=== PATIENT | male | born 1960 | race Caucasian/White ===

== ENCOUNTER 2017-08-31 06:05 | Inpatient (IN) ==
--- NOTE | 2017-08-30 14:39 | Discharge Summary ---
<Ramandeep Talyor E - Last Filed: 08/30/17 15:23> Date of Encounter: 08/30/17 - Discharge Diagnosis (1) Osteoarthritis of both knees Priority: Primary Status: Chronic Qualifiers: Osteoarthritis type: unspecified Qualified Code(s): M17.0 - Bilateral primary osteoarthritis of knee (2) Chronic pain Priority: Secondary Status: Chronic Qualifiers: Chronic pain type: other chronic pain Qualified Code(s): G89.29 - Other chronic pain (3) Status post cervical spinal fusion Priority: Secondary Status: Chronic (4) HTN (hypertension) Priority: Secondary Status: Chronic Qualifiers: Hypertension type: unspecified Qualified Code(s): I10 - Essential (primary ) hypertension (5) JOSE JUAN on CPAP Priority: Secondary Status: Chronic (6) Male erectile disorder Priority: Secondary Status: Chronic (7) GERD (gastroesophageal reflux disease) Priority: Secondary Status: Chronic Qualifiers: Esophagitis presence: esophagitis presence not specified Qualified Code(s) : K21.9 - Gastro-esophageal reflux disease without esophagitis (8) HLD (hyperlipidemia) Priority: Secondary Status: Chronic Qualifiers: Hyperlipidemia type: unspecified Qualified Code(s): E78.5 - Hyperlipidemia , unspecified - Discharge Medications Home Medications: Bupropion HCl [Wellbutrin Xl] 300 mg PO DAILY 12/17/16 [History] Eszopiclone [Lunesta] 3 mg PO HS PRN 12/17/16 [History] FLUoxetine HCl [Prozac] 40 mg PO MOWEFR 12/17/16 [History] Famotidine [Heartburn Prevention] 20 mg PO BID 12/17/16 [History] Lisinopril [Zestril] 20 mg PO DAILY 12/17/16 [History] Loratadine [Claritin] 10 mg PO DAILY 12/17/16 [History] Lovastatin 40 mg PO MOWEFR 12/17/16 [History] Metoprolol XL (24 HR) Succ [Toprol Xl] 25 mg PO DAILY 12/17/16 [History] Pregabalin [Lyrica] 75 mg PO BID 12/17/16 [History] amLODIPine [Norvasc] 5 mg PO DAILY 12/17/16 [History] Buspirone HCl [Buspar] 10 mg PO BID 03/24/17 [History] Testosterone Cypionate [Depo-Testosterone] 200 mg IM QMONTH 03/24/17 [History] Cyclobenzaprine [Flexeril] 10 mg PO TID 07/02/17 [History] Diclofenac Sodium [Voltaren] 1 appl TP QID 07/02/17 [History] Docusate [Colace] 100 mg PO DAILY 07/02/17 [History] Oxycodone HCl [Oxaydo] 5 mg PO Q8H PRN 07/02/17 [History] Aspirin Enteric Coated [Aspirin EC] 325 mg PO DAILY 21 Days #21 tablet. [Rx] Aspirin Enteric Coated [Aspirin EC] 325 mg PO DAILY 21 Days #21 tablet. [Rx] OxyCODONE Immed Rel [Roxicodone 5 MG] 5 mg PO BID PRN 7 Days #14 tablet [Rx] hydrOXYzine pamoate [HydrOXYzine Pamoate] 50 mg PO Q6H PRN 08/31/17 [History] Allergies/Adverse Reactions: 3 Allergy/AdvReac Type Severity Reaction Status Date / Time No Known Allergies Allergy Verified 08/31/17 07:10 Primary care physician: Chaitanya Burrell DO - Patient Status Disposition: Transfer Inpatient Rehab Fac Condition: Good - Discharge Instructions Follow Up With: Ramandeep Taylor PAC [Physician Planning Analyst] - 09/10/17 8:45 am (& also, September 17, 2017 at 3:15 PM) Yung Kothari MD [Partnered Physician] - 09/09/17 5:25 pm (& also, September 30, 2017 at 4:45 PM) Chaitanya Burrell DO [Primary Care Provider] - 11/03/17 2:30 pm - Hospital Course Hospital course: Mr. Gomez is a 57 year old male - Time Spent with Patient Total time spent providing and/or coordinating discharge services: <Yung Kothari - Last Filed: 09/03/17 07:51> Date of Encounter: 09/03/17 Time of Encounter: 07:51 - Discharge Diagnosis (1) Status post bilateral knee replacements Priority: Primary Status: Acute (2) Obesity (BMI 30.0-34.9) Priority: Secondary Status: Chronic (3) Osteoarthritis of both knees Priority: Primary Status: Chronic Qualifiers: Osteoarthritis type: unspecified Qualified Code(s): M17.0 - Bilateral primary osteoarthritis of knee (4) Chronic pain Priority: Secondary Status: Chronic Qualifiers: Chronic pain type: other chronic pain Qualified Code(s): G89.29 - Other chronic pain (5) Status post cervical spinal fusion Priority: Secondary Status: Chronic (6) HTN (hypertension) Priority: Secondary Status: Chronic Qualifiers: Hypertension type: unspecified Qualified Code(s): I10 - Essential (primary ) hypertension (7) JOSE JUAN on CPAP Priority: Secondary Status: Chronic (8) Male erectile disorder Priority: Secondary Status: Chronic (9) GERD (gastroesophageal reflux disease) Priority: Secondary Status: Chronic Qualifiers: Esophagitis presence: esophagitis presence not specified Qualified Code(s) : K21.9 - Gastro-esophageal reflux disease without esophagitis (10) HLD (hyperlipidemia) Priority: Secondary Status: Chronic Qualifiers: Hyperlipidemia type: unspecified Qualified Code(s): E78.5 - Hyperlipidemia , unspecified Primary care physician: Chaitanya Burrell DO - Patient Status Functional capacity at discharge: uses cane/walker Overall status at discharge: patient is progressing back to baseline - Hospital Course Hospital course: Mr. Gomez is a 57 year old male Status post bilateral total knee replacements The patient had an uneventful postoperative course. They received antibiotics and physical therapy and were discharged in stable condition. There will follow -up in the office in 2 weeks. - Time Spent with Patient Total time spent providing and/or coordinating discharge services:
[2017-08-31] MEDS ORDERED: CeFAZolin Syr 2,000MG/20 ML 2,000 MG/20 ML SYRINGE IVPB ONE (06:18)
[2017-08-31] MEDS ORDERED: Plasma-Lyte A (PH 7.4) 1,000 ML IVC SCH (06:30)
--- NOTE | 2017-08-31 06:49 | History & Physical Report ---
Date of Encounter: 08/31/17 Time of Encounter: 06:49 24 Hour HP Update - Instructions Instructions: If the History and Physical is less than 30 days old and was completed prior to A.M. admission and or procedure and has NOT been updated on calendar day of procedure please complete this update prior to performing procedure. - Update Patient reports changes in Medical Condition: No Changes in examination, assessment, or condition: No Changes in Medication: No Preop tests/diagnostics Reviewed: Yes Surgery Remains Indicated: Yes Consent for Planned Operative Procedure(s) Verified: Yes - Pre-Operative Checklist Preoperative Checklist Indicated: No Prophylactic Antibiotic Ordered: Yes Is VTE Prophylaxis Indicated?: Yes
[2017-08-31] MEDS ORDERED: Famotidine 20 MG/2 ML VIAL IVP ONE (06:57)
[2017-08-31] MEDS ORDERED: Pregabalin 75 MG CAPSULE PO ONE (06:58)
--- NOTE | 2017-08-31 07:01 | Anesthesia Evaluation PreOp ---
Date of Encounter: 08/31/17 Time of Encounter: 07:00 - Past History Planned Operation: Bilateral TKA Cardiac History: HTN, Hyperlipidemia Pulmonary History: JOSE JUAN Dx FIELD SERVICE CONSULTANT History: Denies Any Significant HX Other Medical History: Denies Any Significant HX Anesthesia History: No Prior Anesthetic Complications Alcohol Use: none Drug use: none Medications and Allergies Bupropion HCl [Wellbutrin Xl] 300 mg PO DAILY 12/17/16 [History] Eszopiclone [Lunesta] 3 mg PO HS PRN 12/17/16 [History] FLUoxetine HCl [Prozac] 40 mg PO MOWEFR 12/17/16 [History] Famotidine [Heartburn Prevention] 20 mg PO BID 12/17/16 [History] Lisinopril [Zestril] 20 mg PO DAILY 12/17/16 [History] Loratadine [Claritin] 10 mg PO DAILY 12/17/16 [History] Lovastatin 40 mg PO MOWEFR 12/17/16 [History] Metoprolol XL (24 HR) Succ [Toprol Xl] 25 mg PO DAILY 12/17/16 [History] Pregabalin [Lyrica] 75 mg PO BID 12/17/16 [History] amLODIPine [Norvasc] 5 mg PO DAILY 12/17/16 [History] Buspirone HCl [Buspar] 10 mg PO BID 03/24/17 [History] Testosterone Cypionate [Depo-Testosterone] 200 mg IM QMONTH 03/24/17 [History] Clindamycin [Cleocin] 150 mg PO Q6HR #7 capsule 07/02/17 [Rx] Cyclobenzaprine [Flexeril] 10 mg PO TID 07/02/17 [History] Diclofenac Sodium [Voltaren] 1 appl TP QID 07/02/17 [History] Docusate [Colace] 100 mg PO DAILY 07/02/17 [History] Oxycodone HCl [Oxaydo] 5 mg PO Q6HR 07/02/17 [History] Aspirin Enteric Coated [Aspirin EC] 325 mg PO DAILY 21 Days #21 tablet. [Rx] Aspirin Enteric Coated [Aspirin EC] 325 mg PO DAILY 21 Days #21 tablet. [Rx] OxyCODONE Immed Rel [Roxicodone 5 MG] 5 mg PO BID PRN 7 Days #14 tablet [Rx] 3 Allergy/AdvReac Type Severity Reaction Status Date / Time No Known Allergies Allergy Verified 03/24/17 08:03 - Meds/Allergy Pre-op Review Medications Reviewed: Yes Allergies Reviewed: Yes Beta Blockers on Current Med List: Yes (Took Metoprolol today 0530) Anesthesia Results - Labs Laboratory Tests 08/24/17 08/24/17 08/24/17 15:23 15:23 15:23 Hgb 16.1 Hct 50.7 H Plt Count 231 PT 11.2 INR 1.0 APTT 26.6 Sodium 137 Potassium 4.6 BUN 17 Creatinine 1.47 H - Imaging EKG: report reviewed (SR) Anesthesia Exam O2 Sat Height 1.73 m Height 1.73 m Height 1.73 m Weight 99.337 kg Weight 99.337 kg Weight 99.337 kg O2 Sat by Pulse Oximetry 96 O2 Sat by Pulse Oximetry 96 Vital Signs Temp Pulse Resp BP Pulse Ox 97.9 F 65 18 124/79 96 08/31/17 06:23 08/31/17 06:23 08/31/17 06:23 08/31/17 06:23 08/31/17 06:23 Height: 5'8 Weight: 219 lbs NPO (# of Hours): MN Pain Scale: 0 - HEENT Pupil (Motor): Pupils equal, EOMI Mallampati: III Teeth: Normal Oral Opening: Less than or equal to 3 - FIELD SERVICE CONSULTANT LOC: Oriented FIELD SERVICE CONSULTANT Motor: Normal RUE, Normal LUE, Normal RLE, Normal LLE, Normal Face FIELD SERVICE CONSULTANT Sensory: Normal: RUE, LUE, RLE, LLE, Face - Cardiac Rhythm: Regular Murmur: None JVD: No Carotid Bruit: No - Pulmonary Breath Sounds: bilateral Clear Respiratory Effort: Symmetrical Anesthesia Assess/Plan ASA Score: 2 Modified [place] Scale for Level of Consciousness: Cooperative, oriented, and tranquil Anesthetic Plan: General, Regional Monitoring Plan: Standard Monitors Recovery Plan: PACU (Discussed GA and RA, agrees to proceed)
[2017-08-31] MEDS ORDERED: Lidocaine -MPF 1% 2 ML VIAL ONE (07:15)
[2017-08-31] MEDS ORDERED: Ethanol\\Acetic Acid\\Na Ace\\Ben 1,000 ML IRRIG.SOLN IR ONE ×2 (07:20→07:21)
[2017-08-31] MEDS ORDERED: Lidocaine -MPF 2% 2 ML VIAL ONE (07:52)
[2017-08-31] MEDS ORDERED: *HR* FentaNYL (PF) 100 MCG/2 ML VIAL ONE (07:52)
[2017-08-31] MEDS ORDERED: *HR* Propofol 200 MG/20 ML VIAL IVP ONE ×2 (07:52→09:00)
[2017-08-31] MEDS ORDERED: Ketamine *HR* 500 MG/10 ML MDV ONE (07:53)
[2017-08-31] MEDS ORDERED: Ondansetron 4 MG/2 ML VIAL IVP PRN ×2 (07:56→11:14)
[2017-08-31] MEDS ORDERED: *HR* OxyCODONE/APAP 5/325 TABLET PO PRN (07:56)
[2017-08-31] MEDS ORDERED: *HR* Succinylcholine 200 MG/10 ML VIAL IVP ONE (08:00)
[2017-08-31] MEDS ORDERED: Ropivacaine/PF 0.2% 500 MG/250 ML INFUS..BTL EP SCH (08:00)
[2017-08-31] MEDS ORDERED: Acetaminophen IV 1,000 MG/100 ML INFUS..BTL ONE (08:06)
[2017-08-31] MEDS ORDERED: *HR* Magnesium Sulfate 1 GM/2 ML VIAL ONE (08:07)
[2017-08-31] MEDS ORDERED: Dexamethasone 4 MG/ML VIAL ONE (08:09)
[2017-08-31] MEDS ORDERED: Ondansetron 4 MG/2 ML VIAL ONE (08:09)
[2017-08-31] MEDS ORDERED: *HR* PHENYLEPHRINE 1,000 MCG/10 ML SYRINGE IVP ONE ×2 (08:19→08:43)
--- NOTE | 2017-08-31 08:30 | Anesthesia Procedures ---
Date of Encounter: 08/31/17 Time of Encounter: 07:00 Procedures: Anesthesia - Epidural/Spinal Patient ID/Chart reviewed: Yes Patient examined: Yes Consent Obtained: Yes Supplemental Oxygen: Nasal Cannula Supplemental Oxygen Rate (L/min): 2 Sedation: Versed (mg): 4 Site Prep: Aseptic Technique, Sterile prep and drape, Povidone-Iodine 1% Patient position: upright Local Anesthetic: Lidocaine 1% Amount of Local Anesthetic used: 5 Touhy Needle Gauge: 19 Touhy Needle Depth (cm): 4 Catheter Depth at Skin (cm): 6 Test Dose (1.5% Lido + Epi): Volume given (mls): 5 Test Dose Result: Negative Loading Dose: 0.25% Marcaine (mls): 6 Loading Dose Administered: Thru Catheter Infusion Med: Other (Ropivacaine) Infusion Rate (mls/hr): [address]: Tegaderm, Tape Interspace Used: L3-L4 Loss of Resistance (TERRELL): Yes Blood: No CSF: No Paresthesia: No Vitals + FHT's: Vital Signs/O2 Sat/Glucose, Most Current Temp Pulse Resp BP Pulse Ox 08/31/17 07:30 68 18 133/94 100 08/31/17 06:30 97.9 F 65 18 124/79 96 08/31/17 06:23 97.9 F 65 18 124/79 96
--- NOTE | 2017-08-31 08:30 | Anesthesia Procedures ---
Date of Encounter: 08/31/17
[2017-08-31] MEDS ORDERED: EPHEDrine 50 MG/ML VIAL ONE (08:39)
[2017-08-31] MEDS ORDERED: *HR* Vasopressin 20 UNIT/ML VIAL ONE (08:44)
[2017-08-31] MEDS ORDERED: *HR* Midazolam HCl 2 MG/2 ML VIAL ONE (09:16)
--- NOTE | 2017-08-31 09:50 | Orthopedic Operative Note ---
Date of procedure: 08/31/17 Pre-op diagnosis: Bilateral knee arthritis Post-op diagnosis: same Procedure: Procedure: Bilateral robotic-assisted Total knee replacement Estimated blood loss: 400 cc Hardware: Metal and polyethylene replacement. [place] Femur: 5 Tibia: 5 PS insert: 13 Patella: 39 Exam Under anesthesia: Left knee 9 degrees flexion contracture 6 degrees varus right knee 6 degree flexion contracture 7 degree varus as calculated by the robot full flexion and no instability Procedural Notes: Patient noted to have grade 4 arthritic changes medial compartment patellofemoral joint bilaterally Operative procedure: The patient was brought to the operating room and placed on the operating room table. After general anesthesia was administered the operative knee was examined. Findings were noted in the exam under anesthesia. Surgery that is dictated this for both knees any differences will be highlighted The operative extremity was prepped and draped in sterile surgical fashion. The patient received IV antibiotics prior to skin incision. A standard midline incision was made centered over the patella. The incision was made through the skin and subcutaneous tissue. A medial parapatellar tendon approach was performed. Care was taken to preserve tissue along the medial aspect of the patella. And to protect the patella tendon. The deep MCL was released off the medial tibia. The infra patella fat pad was excised. The patella was everted and cut was made at the level of the insertion of the quadriceps and patella tendon. The patella was sized to a 39 the guide was seated and the lug holes are drilled. Knee was brought into flexion. Patient noted to have patient noted to have grade 4 through the changes medial compartment and patellofemoral joint in both knees. Steinmann pins were placed in the tibia and the femur for the tibial and femoral arrays respectively. Checkpoints were also placed in the tibia and the femur for calculation purposes. The knee including the femur and the tibial registered. Osteophytes, ACL and PCL were excised at this point. Extension and flexion were assessed with a valgus stress components were adjusted on the computer to balance the knee. Femoral cuts were made first with robotic assistance, these included the anterior cut posterior cuts chamfer cuts. Tibial cut was then performed with robotic assistance as well. Bone fragments were removed, as well as the medial and lateral meniscus. The size 5 femoral guide was seated box cut was made lug holes are drilled. The size 5 tibial tray was seated and prepared with the fin cutter. Trial reduction with the 13 PS Lela revealed extension of 0, 3 degrees varus left knee and 6 degrees varus and full flexion. No varus valgus instability. Trial reduction revealed excellent patella tracking. All trial components were removed all bony surfaces were irrigated. The Tibia was seated followed by the femur, The Lela size 13 was seated and secured patella. Patient had similar findings for motion and stability. I closed the left knee, The knee was closed by the PA for the right knee. The knee was then irrigated out with 2 L of pulse irrigation. The extensor mechanism was closed with #2 FiberWire suture and #2 PDS suture. The subcutaneous tissue was then irrigated and closed deep with #1 PDS suture superficially with 0 PDS suture and skin was closed with zip tie The patient was then placed in a sterile dressing and a postoperative brace extubated and transferred to recovery room in stable condition. Anesthesia: GETA, epidural Surgeon: Yung Kothari Was there an assistant to the director present: Yes Electric Motor Control Assembler: Ramandeep Taylor Estimated blood loss (cc): 400 Condition: stable Disposition: PACU
[2017-08-31 10:54] LABS: Hemoglobin 13.5 g/dL (12.9-16.9)
[2017-08-31] MEDS ORDERED: Temazepam 15 MG CAPSULE PO PRN (11:14)
[2017-08-31] MEDS ORDERED: hydrOXYzine pamoate 25 MG CAPSULE PO PRN (11:14)
[2017-08-31] MEDS ORDERED: Sennosides 8.6 MG TABLET PO PRN (11:14)
[2017-08-31] MEDS ORDERED: NON-FORMULARY MEDICATION 1 EACH EACH (Testosterone Cypionate [Depo-Testosterone] 200 MG) IM SCH (11:14)
[2017-08-31] MEDS ORDERED: Naloxone 0.4 MG/ML INJ IVP PRN (11:14)
[2017-08-31] MEDS ORDERED: MOM Conc 10 ML UD.LIQ PO PRN (11:14)
[2017-08-31] MEDS: *HR* OxyCODONE/APAP 5/325 TABLET PO PRN ×2 (12:50→21:36)
--- NOTE | 2017-08-31 13:07 | Anesthesia Evaluation Post Op ---
Date of Encounter: 08/31/17 Time of Encounter: 11:00 - Vital Signs Vital Signs: Vital Signs/O2 Sat/Glucose, Most Current Temp Pulse Resp BP Pulse Ox 08/31/17 12:52 97.8 F 89 14 143/81 98 08/31/17 12:03 97.7 F 79 14 125/73 97 08/31/17 11:30 97 08/31/17 11:21 97.9 F 81 14 127/72 100 08/31/17 11:11 97.9 F 76 14 131/71 100 08/31/17 11:01 97.9 F 75 15 135/68 100 08/31/17 10:51 75 14 127/52 100 08/31/17 10:41 71 14 127/70 100 08/31/17 10:31 97.8 F 73 14 116/65 87 08/31/17 10:30 16 92 - Lungs Lungs: Clear Ascult./Percussion - Airway Airway: Non-obstructed - Cardiovascular Regular Rate - Mental Status Mental Status: Alert & Oriented, Answers Appropriately - Pain Pain Scale: 0 - Nausea Vomiting Nausea Vomiting: Not Present - Hydration Hydration: Ice chips - Discharge PostOp Status: Transfer Patient to floor
[2017-08-31] MEDS: Lisinopril 20 MG TABLET PO SCH (16:20)
[2017-08-31] MEDS: Metoprolol XL (24 HR) Succ 25 MG TAB.ER.24H PO SCH (16:21)
[2017-08-31] MEDS: BuPROPion XL (24 HR) 150 MG TABLET PO SCH (16:21)
[2017-08-31] MEDS: FLUoxetine 20 MG CAPSULE PO SCH (16:21)
[2017-08-31] MEDS: Loratadine 10 MG TABLET PO SCH (16:21)
[2017-08-31] MEDS: amLODIPine 5 MG TABLET PO SCH (16:21)
[2017-08-31] MEDS: CeFAZolin Premix DUPLEX 2,000 MG/50 ML BAG IVPB SCH ×2 (16:22→23:40)
[2017-08-31] MEDS ORDERED: *HR* Enoxaparin 30 MG/0.3 ML SYRINGE SQ SCH (18:00)
[2017-08-31] MEDS: Ringers Solution, Lactated 1,000 ML IVC SCH (21:09)
[2017-08-31] MEDS: Pregabalin 75 MG CAPSULE PO SCH (21:26)
[2017-08-31] MEDS: Famotidine 20 MG TABLET PO SCH (21:27)
[2017-09-01] MEDS: Ringers Solution, Lactated 1,000 ML IVC SCH (00:25)
[2017-09-01] MEDS: *HR* OxyCODONE/APAP 5/325 TABLET PO PRN (04:58)
[2017-09-01 05:11] LABS: Hematocrit 40.8 % (37.5-50.1); Hemoglobin 13.7 g/dL (12.9-16.9)
[2017-09-01 05:22] LABS: BUN/Creatinine Ratio 13 (6-26); Blood Urea Nitrogen 15 mg/dL (6-20); Calcium 8.8 mg/dL (8.6-10.3); Carbon Dioxide 28 mEq/L (23-29); Chloride 104 mEq/L (98-107); Glucose 132 mg/dL (70-105); Osmolality,Calculated 289 (280-300); Sodium 138 mEq/L (136-145); eGFR For African Americans > 60 (> 60); eGFR For Non-African Americans > 60 (> 60)
[2017-09-01] MEDS ORDERED: *HR* Morphine Sulfate/PF 10 MG/10 ML AMPUL ONE (06:32)
[2017-09-01] MEDS: *HR* OxyCODONE Immed Rel 5 MG TABLET PO PRN ×4 (06:51→21:23)
--- NOTE | 2017-09-01 06:51 | Orthopedics Progress Note ---
Date of Encounter: 09/01/17 Time of Encounter: 06:51 - Assessment and Plan (1) Status post bilateral knee replacements Current Visit: Yes Status: Acute (2) Obesity (BMI 30.0-34.9) Current Visit: Yes Status: Chronic (3) Osteoarthritis of both knees Current Visit: No Status: Chronic Qualifiers: Osteoarthritis type: unspecified Qualified Code(s): M17.0 - Bilateral primary osteoarthritis of knee (4) Chronic pain Current Visit: No Status: Chronic Qualifiers: Chronic pain type: other chronic pain Qualified Code(s): G89.29 - Other chronic pain (5) Status post cervical spinal fusion Current Visit: No Status: Chronic (6) HTN (hypertension) Current Visit: No Status: Chronic Qualifiers: Hypertension type: unspecified Qualified Code(s): I10 - Essential (primary ) hypertension (7) JOSE JUAN on CPAP Current Visit: No Status: Chronic (8) Male erectile disorder Current Visit: No Status: Chronic (9) GERD (gastroesophageal reflux disease) Current Visit: No Status: Chronic Qualifiers: Esophagitis presence: esophagitis presence not specified Qualified Code(s) : K21.9 - Gastro-esophageal reflux disease without esophagitis (10) HLD (hyperlipidemia) Current Visit: No Status: Chronic Qualifiers: Hyperlipidemia type: unspecified Qualified Code(s): E78.5 - Hyperlipidemia , unspecified Subjective Interval history: Patient was seen this morning doing well without complaints. Afebrile vital signs stable. Operative extremity: Neurovascularly intact Dressing clean dry and intact Calves nontender Assessment and plan: Continue with postoperative care Hematocrit 40 Objective Vital signs: Vital Signs Temp Pulse Resp BP Pulse Ox 09/01/17 03:50 98.1 F 89 18 140/80 100 08/31/17 23:39 98.3 F 100 18 153/80 100 08/31/17 19:41 98.3 F 82 18 163/80 100 08/31/17 17:40 97.9 F 88 17 137/78 99 08/31/17 15:45 97.8 F 77 15 131/80 100 08/31/17 14:37 97.8 F 81 15 131/76 99 08/31/17 13:40 97.8 F 88 15 130/77 99 08/31/17 12:52 97.8 F 89 14 143/81 98 08/31/17 12:03 97.7 F 79 14 125/73 97 08/31/17 11:30 97 08/31/17 11:29 97.7 F 82 15 124/60 97 08/31/17 11:21 97.9 F 81 14 127/72 100 08/31/17 11:11 97.9 F 76 14 131/71 100 08/31/17 11:01 97.9 F 75 15 135/68 100 08/31/17 10:51 75 14 127/52 100 08/31/17 10:41 71 14 127/70 100 08/31/17 10:31 97.8 F 73 14 116/65 87 08/31/17 10:30 16 92 08/31/17 07:30 68 18 133/94 100 Intake and Output 08/31/17 08/31/17 09/01/17 15:59 23:59 07:59 Intake Total 20 / 20 3010 / 3010 850 / 850 Output Total 400 / 400 7250 / 7250 1999 Balance -380 / -380 -4240 / -4240 -1150 / -1150 Intake: IV Fluids 20 / 20 50 / 50 50 / 50 Ancef Premix DUPLEX 2,000 mg In 50 / 50 50 / 50 50 ml @ 100 mls/hr IVPB Q8HR REBEL Rx#:[id number] Ancef Syringe 2,000 MG/20 ML 2, 20 / 20 000 mg In 20 ml @ 200 mls/hr IVPB PREOP ONE Rx#:[id number] Oral 2960 / 2960 800 / 800 Output: Estimated Blood Loss 400 / 400 Catheter 7250 / 7250 1999 Urethral ([place]) 2150 / 2150 200 / 200 Other: Meal Dinner Percent of Meal Consumed 100% - Labs CBC & BMP: 09/01/17 04:11 09/01/17 04:11 Labs: Abnormal lab results Glucose 132 mg/dL (70-105) H 09/01/17 04:11 - VTE Documentation of Mechanical Device: Venous foot pump, device Consult Discharge Plan - Plan Referrals: Chaitanya Burrell DO [Primary Care Provider] -
[2017-09-01] MEDS: Lisinopril 20 MG TABLET PO SCH (07:54)
[2017-09-01] MEDS: Pregabalin 75 MG CAPSULE PO SCH ×2 (07:55→21:02)
[2017-09-01] MEDS: BuPROPion XL (24 HR) 150 MG TABLET PO SCH (07:55)
[2017-09-01] MEDS: Loratadine 10 MG TABLET PO SCH (07:55)
[2017-09-01] MEDS: Metoprolol XL (24 HR) Succ 25 MG TAB.ER.24H PO SCH (07:55)
[2017-09-01] MEDS: amLODIPine 5 MG TABLET PO SCH (07:56)
[2017-09-01] MEDS: Famotidine 20 MG TABLET PO SCH ×2 (07:56→21:02)
[2017-09-01] MEDS ORDERED: *HR* OxyCODONE Immed Rel 5 MG TABLET PO PRN (08:04)
[2017-09-01] MEDS: Acetaminophen IV 1,000 MG/100 ML INFUS..BTL IVPB PRN (11:14)
[2017-09-01] MEDS: *HR* Enoxaparin 30 MG/0.3 ML SYRINGE SQ SCH (18:49)
[2017-09-02] MEDS: *HR* OxyCODONE Immed Rel 5 MG TABLET PO PRN ×4 (04:25→18:17)
[2017-09-02 05:47] LABS: Hemoglobin 12.8 g/dL (12.9-16.9)
[2017-09-02 06:03] LABS: BUN/Creatinine Ratio 12 (6-26); Blood Urea Nitrogen 13 mg/dL (6-20); Calcium 8.5 mg/dL (8.6-10.3); Carbon Dioxide 31 mEq/L (23-29); Chloride 95 mEq/L (98-107); Glucose 110 mg/dL (70-105); Osmolality,Calculated 271 (280-300); Potassium 3.6 mEq/L (3.5-5.1); Sodium 130 mEq/L (136-145); eGFR For African Americans > 60 (> 60); eGFR For Non-African Americans > 60 (> 60)
[2017-09-02] MEDS: *HR* Enoxaparin 30 MG/0.3 ML SYRINGE SQ SCH ×2 (07:41→17:41)
--- NOTE | 2017-09-02 08:02 | Orthopedics Progress Note ---
Date of Encounter: 09/02/17 Time of Encounter: 08:02 - Assessment and Plan (1) Status post bilateral knee replacements Current Visit: Yes Status: Acute (2) Obesity (BMI 30.0-34.9) Current Visit: Yes Status: Chronic (3) Osteoarthritis of both knees Current Visit: No Status: Chronic Qualifiers: Osteoarthritis type: unspecified Qualified Code(s): M17.0 - Bilateral primary osteoarthritis of knee (4) Chronic pain Current Visit: No Status: Chronic Qualifiers: Chronic pain type: other chronic pain Qualified Code(s): G89.29 - Other chronic pain (5) Status post cervical spinal fusion Current Visit: No Status: Chronic (6) HTN (hypertension) Current Visit: No Status: Chronic Qualifiers: Hypertension type: unspecified Qualified Code(s): I10 - Essential (primary ) hypertension (7) JOSE JUAN on CPAP Current Visit: No Status: Chronic (8) Male erectile disorder Current Visit: No Status: Chronic (9) GERD (gastroesophageal reflux disease) Current Visit: No Status: Chronic Qualifiers: Esophagitis presence: esophagitis presence not specified Qualified Code(s) : K21.9 - Gastro-esophageal reflux disease without esophagitis (10) HLD (hyperlipidemia) Current Visit: No Status: Chronic Qualifiers: Hyperlipidemia type: unspecified Qualified Code(s): E78.5 - Hyperlipidemia , unspecified Subjective Interval history: Patient was seen this morning doing well without complaints. Afebrile vital signs stable. Operative extremity: Neurovascularly intact Dressing clean dry and intact Calves nontender Assessment and plan: Continue with postoperative care Hematocrit 40 Objective Vital signs: Vital Signs Temp Pulse Resp BP Pulse Ox 09/02/17 07:00 98.8 F 68 16 132/76 95 09/01/17 23:29 99.1 F 66 18 135/74 94 09/01/17 20:09 98.9 F 104 18 151/92 97 09/01/17 15:52 98.7 F 104 15 163/93 96 09/01/17 09:38 98.1 F 72 14 112/78 96 Intake and Output 09/01/17 09/02/17 09/02/17 23:59 07:59 15:59 Intake Total 600 / 600 480 / 480 Output Total 0 / 0 950 / 950 Balance 600 / 600 -470 / -470 Intake: Oral 600 / 600 480 / 480 Output: Urine 0 / 0 950 / 950 Other: Meal Dinner Percent of Meal Consumed 55% # Voids 1 - Labs CBC & BMP: 09/02/17 05:06 09/02/17 05:06 Labs: Abnormal lab results Hgb 12.8 g/dL (12.9-16.9) L 09/02/17 05:06 Sodium 130 mEq/L (136-145) L 09/02/17 05:06 Chloride 95 mEq/L (98-107) L 09/02/17 05:06 Carbon Dioxide 31 mEq/L (23-29) H 09/02/17 05:06 Glucose 110 mg/dL (70-105) H 09/02/17 05:06 Calculated Osmolality 271 (280-300) L 09/02/17 05:06 Calcium 8.5 mg/dL (8.6-10.3) L 09/02/17 05:06 - VTE Documentation of Mechanical Device: Venous foot pump, device Consult Discharge Plan - Plan Referrals: Chaitanya Burrell DO [Primary Care Provider] -
[2017-09-02] MEDS: BuPROPion XL (24 HR) 150 MG TABLET PO SCH (08:31)
[2017-09-02] MEDS: Pregabalin 75 MG CAPSULE PO SCH ×2 (08:31→20:43)
[2017-09-02] MEDS: Famotidine 20 MG TABLET PO SCH ×2 (08:31→20:43)
[2017-09-02] MEDS: Lisinopril 20 MG TABLET PO SCH (08:31)
[2017-09-02] MEDS: Metoprolol XL (24 HR) Succ 25 MG TAB.ER.24H PO SCH (08:31)
[2017-09-02] MEDS: Loratadine 10 MG TABLET PO SCH (08:32)
[2017-09-02] MEDS: amLODIPine 5 MG TABLET PO SCH (08:32)
[2017-09-02] MEDS: FLUoxetine 20 MG CAPSULE PO SCH (11:16)
[2017-09-02] MEDS: Acetaminophen IV 1,000 MG/100 ML INFUS..BTL IVPB PRN ×2 (11:17→23:00)
--- NOTE | 2017-09-02 16:44 | Event Note ---
Date of Encounter: 09/02/17 Time of Encounter: 12:30 PCR- POD#2 Bilateral robotic-assisted Total knee replacement 09/10/17 PCR - Patient seen at bedside. small amount drainage to left distal incision nurse states from last night. Will continue to monitor and if continues to drain more overnight will consider farrah. Pain control: Adequate at this time, states better than it was yesterday Participating in PT. All questions and concerns addressed. Educated on use of incentive spirometer, ambulation, and hydration. Patient educated on post-operative restrictions and care. Addressed: see above. D/C plan: Yolis CLAYTON tomorrow
--- NOTE | 2017-09-02 16:46 | Physician Discharge Referral ---
ExtendedCare Referral Info Transfer To: [facility] Provider in Charge: Dr. Kothari - Diagnosis (1) Lumbar radiculitis Priority: Secondary Status: Chronic (2) Cervical stenosis of spinal canal Priority: Secondary Status: Chronic (3) Osteoarthritis of both knees Priority: Secondary Status: Chronic (4) Chronic pain Priority: Secondary Status: Chronic (5) Status post cervical spinal fusion Priority: Secondary Status: Chronic (6) HTN (hypertension) Priority: Secondary Status: Chronic (7) JOSE JUAN on CPAP Priority: Secondary Status: Chronic (8) Male erectile disorder Priority: Secondary Status: Chronic (9) GERD (gastroesophageal reflux disease) Priority: Secondary Status: Chronic (10) HLD (hyperlipidemia) Priority: Secondary Status: Chronic (11) Status post bilateral knee replacements Priority: Primary Status: Acute (12) Obesity (BMI 30.0-34.9) Priority: Secondary Status: Chronic Expected Duration of Placement: <30 days Prognosis: Good Aware of Diagnosis: Patient Aware of Prognosis: Patient - Transfer Medications Home Medications: Bupropion HCl [Wellbutrin Xl] 300 mg PO DAILY 12/17/16 [History] Eszopiclone [Lunesta] 3 mg PO HS PRN 12/17/16 [History] FLUoxetine HCl [Prozac] 40 mg PO MOWEFR 12/17/16 [History] Famotidine [Heartburn Prevention] 20 mg PO BID 12/17/16 [History] Lisinopril [Zestril] 20 mg PO DAILY 12/17/16 [History] Loratadine [Claritin] 10 mg PO DAILY 12/17/16 [History] Lovastatin 40 mg PO MOWEFR 12/17/16 [History] Metoprolol XL (24 HR) Succ [Toprol Xl] 25 mg PO DAILY 12/17/16 [History] Pregabalin [Lyrica] 75 mg PO BID 12/17/16 [History] amLODIPine [Norvasc] 5 mg PO DAILY 12/17/16 [History] Buspirone HCl [Buspar] 10 mg PO BID 03/24/17 [History] Testosterone Cypionate [Depo-Testosterone] 200 mg IM QMONTH 03/24/17 [History] Cyclobenzaprine [Flexeril] 10 mg PO TID 07/02/17 [History] Diclofenac Sodium [Voltaren] 1 appl TP QID 07/02/17 [History] Docusate [Colace] 100 mg PO DAILY 07/02/17 [History] Oxycodone HCl [Oxaydo] 5 mg PO Q8H PRN 07/02/17 [History] Aspirin Enteric Coated [Aspirin EC] 325 mg PO DAILY 21 Days #21 tablet. [Rx] Aspirin Enteric Coated [Aspirin EC] 325 mg PO DAILY 21 Days #21 tablet. [Rx] OxyCODONE Immed Rel [Roxicodone 5 MG] 5 mg PO BID PRN 7 Days #14 tablet [Rx] hydrOXYzine pamoate [HydrOXYzine Pamoate] 50 mg PO Q6H PRN 08/31/17 [History] Allergies/Adverse Reactions: 3 Allergy/AdvReac Type Severity Reaction Status Date / Time No Known Allergies Allergy Verified 08/31/17 07:10 - Respiratory Orders Smoking Cessation: Smoking cessation has been advised. For more information, call the [employer] Quit Line at 7-369-AXZG-NOW. - Ancillary Orders May use pressure relief devices daily prn, May go on TOR w/family/respon constitution party w /meds at nurse discretion PRN, May consult with Dentist, Call Or Contact Centre Team Leader, Bag Cutter PRN - Mobility Orders Chair, Ambulate - Rehabiliation Orders Rehab Potential: Good Rehab Orders: Evaluation for Physical Therapy, Evaluation for Occupational Therapy Other: Total Knee replacement Precautions x 6 weeks Apply cold therapy wrap 3-6x/day for 20 minutes at a time. Encourage ambulation throughout the day and incentive spirometer 10x/hour. Elevate affected extremity above heart as tolerated. Brace: Wear knee immobilizer at night x 2 weeks. - Treatments Skin tear care topically daily PRN per policy List/Other: Opsite placed. Keep dressing intact until first follow up appointment. If > 50% saturated, notify office, remove dressing and place appropriate dressing back in place. Dressing is water resistant, not water-proof. OK to shower, but do not get dressing wet. - Diet Orders Regular CERTIFICATION: I certify that the transfer of the above named patient to an Extended Care Facility is necessary for the continuing treatment of the diagnosis listed. The above information is true and accurate reflection of patient's current condition. Confidential - Redisclosure prohibited without a patient's written consent.
[2017-09-02] MEDS: *HR* OxyCODONE/APAP 5/325 TABLET PO PRN (22:47)
[2017-09-03] MEDS: *HR* OxyCODONE Immed Rel 5 MG TABLET PO PRN ×2 (03:29→10:00)
[2017-09-03] MEDS: *HR* Enoxaparin 30 MG/0.3 ML SYRINGE SQ SCH (05:49)
[2017-09-03] MEDS: Acetaminophen IV 1,000 MG/100 ML INFUS..BTL IVPB PRN (05:50)
[2017-09-03 07:22] VITALS: BP 148/87
--- NOTE | 2017-09-03 07:52 | Orthopedics Progress Note ---
Date of Encounter: 09/03/17 Time of Encounter: 07:52 - Assessment and Plan (1) Status post bilateral knee replacements Current Visit: Yes Status: Acute (2) Obesity (BMI 30.0-34.9) Current Visit: Yes Status: Chronic (3) Osteoarthritis of both knees Current Visit: No Status: Chronic Qualifiers: Osteoarthritis type: unspecified Qualified Code(s): M17.0 - Bilateral primary osteoarthritis of knee (4) Chronic pain Current Visit: No Status: Chronic Qualifiers: Chronic pain type: other chronic pain Qualified Code(s): G89.29 - Other chronic pain (5) Status post cervical spinal fusion Current Visit: No Status: Chronic (6) HTN (hypertension) Current Visit: No Status: Chronic Qualifiers: Hypertension type: unspecified Qualified Code(s): I10 - Essential (primary ) hypertension (7) JOSE JUAN on CPAP Current Visit: No Status: Chronic (8) Male erectile disorder Current Visit: No Status: Chronic (9) GERD (gastroesophageal reflux disease) Current Visit: No Status: Chronic Qualifiers: Esophagitis presence: esophagitis presence not specified Qualified Code(s) : K21.9 - Gastro-esophageal reflux disease without esophagitis (10) HLD (hyperlipidemia) Current Visit: No Status: Chronic Qualifiers: Hyperlipidemia type: unspecified Qualified Code(s): E78.5 - Hyperlipidemia , unspecified Subjective Interval history: Patient was seen this morning doing well without complaints. Afebrile vital signs stable. Operative extremity: Neurovascularly intact Dressing clean dry and intact Calves nontender Assessment and plan: Continue with postoperative care Hematocrit 40 discharged today Objective Vital signs: Vital Signs Temp Pulse Resp BP Pulse Ox 09/03/17 06:22 98.5 F 98 16 148/87 98 09/03/17 03:24 98.3 F 93 18 150/91 97 09/02/17 19:10 98.9 F 100 20 157/77 98 09/02/17 14:51 98.5 F 881 16 144/93 98 09/02/17 12:32 98.2 F 76 18 147/100 96 Intake and Output 09/02/17 09/02/17 09/03/17 15:59 23:59 07:59 Intake Total 750 / 750 100 / 100 960 / 960 Output Total 1300 / 1300 1525 / 1525 2750 / 2750 Balance -550 / -550 -1425 / -1425 -1790 / -1790 Intake: IV Fluids 100 / 100 100 / 100 Ofirmev 1,000 mg/100 ml 1,000 100 / 100 100 / 100 mg In 100 ml @ 400 mls/hr IVPB Q6HR PRN Rx#:[id number] Oral 650 / 650 960 / 960 Output: Urine 1300 / 1300 1525 / 1525 2750 / 2750 Other: Meal Lunch Percent of Meal Consumed 60% # Voids 1 - Labs CBC & BMP: 09/02/17 05:06 09/02/17 05:06 Labs: Abnormal lab results Hgb 12.8 g/dL (12.9-16.9) L 09/02/17 05:06 Sodium 130 mEq/L (136-145) L 09/02/17 05:06 Chloride 95 mEq/L (98-107) L 09/02/17 05:06 Carbon Dioxide 31 mEq/L (23-29) H 09/02/17 05:06 Glucose 110 mg/dL (70-105) H 09/02/17 05:06 Calculated Osmolality 271 (280-300) L 09/02/17 05:06 Calcium 8.5 mg/dL (8.6-10.3) L 09/02/17 05:06 - VTE Documentation of Mechanical Device: Venous foot pump, device Consult Discharge Plan - Plan Referrals: Ramandeep Taylor PAC [Physician Energy Trading Analyst] - 09/10/17 8:45 am (& also, September 17, 2017 at 3:15 PM) Yung Kothari MD [Partnered Physician] - 09/09/17 5:25 pm (& also, September 30, 2017 at 4:45 PM) Chaitanya Burrell DO [Primary Care Provider] - 11/03/17 2:30 pm
[2017-09-03] MEDS: Loratadine 10 MG TABLET PO SCH (09:04)
[2017-09-03] MEDS: Metoprolol XL (24 HR) Succ 25 MG TAB.ER.24H PO SCH (09:04)
[2017-09-03] MEDS: amLODIPine 5 MG TABLET PO SCH (09:04)
[2017-09-03] MEDS: BuPROPion XL (24 HR) 150 MG TABLET PO SCH (09:04)
[2017-09-03] MEDS: Famotidine 20 MG TABLET PO SCH (09:04)
[2017-09-03] MEDS: Pregabalin 75 MG CAPSULE PO SCH (09:04)
[2017-09-03] MEDS: Lisinopril 20 MG TABLET PO SCH (09:04)
== END 2017-09-03 11:15 | DRG 462 ==
LOC: SAMDAY 06:05 → 3NENU 11:15
PROVIDERS: ADMIT Orthopaedic Surgery; ATTEND Orthopaedic Surgery